=== PATIENT | female | born 2000 | race Caucasian/White ===

== ENCOUNTER 2019-03-28 18:46 | Emergency (ER) | payer SELFPAY ==
--- NOTE | 2019-03-28 18:50 | EDM.PDOC ---
ED HPI GENERAL MEDICAL PROBLEM - General Chief Complaint: Drug or Alcohol Abuse Stated Complaint: [facility] Time Seen by Provider: 03/28/19 18:50 - History of Present Illness INITIAL COMMENTS - FREE TEXT/NARRATIVE: 18-year-old female brought in by EMS after ingestion of a large amount of acetaminophen and unknown quantity of lithium. By history the patient took 50 325 mg Tylenol tablets around 10:00 this morning. Approximately hours after this she took anywhere from 2400 to 3600 g of lithium. She normally takes 450 mg in the morning 300 mg in the evening she says she took about 8 tablets and she is not sure of which strength that she took. She does states she was trying to kill herself she did not intend on living any longer. However, she did make the phone call to get help. The patient has not had any suicidal attempts in the past however she has been hospitalized for suicidal ideation. She denies drug or alcohol involvement. - Related Data Allergies Allergy/AdvReac Type Severity Reaction Status Date / Time Unable to Assess Allergy Unverified 03/28/19 20:06 Home Meds: Home Meds [place] Carbonate [[place] Carbonate ER] 450 mg PO BEDTIME 03/28/19 [History] Nadolol [Corgard] 20 mg PO DAILY 03/28/19 [History] busPIRone [Buspar] 15 mg PO BID 03/28/19 [History] ED ROS GENERAL - Review of Systems Review Of Systems: See Below Constitutional: Reports: No Symptoms HEENT: Reports: No Symptoms Respiratory: Reports: No Symptoms Cardiovascular: Reports: No Symptoms Endocrine: Reports: No Symptoms GI/Abdominal: Reports: No Symptoms Psychiatric: Reports: Suicidal Ideation ED EXAM, GENERAL - Physical Exam Exam: See Below Exam Limited By: No Limitations General Appearance: Alert, No Apparent Distress Head: Atraumatic, Normocephalic Neck: Normal Inspection, Supple, Non-Tender, Full Range of Motion. No: Lymphadenopathy (L), Lymphadenopathy (R) Respiratory/Chest: No Respiratory Distress, Lungs Clear, Normal Breath Sounds Cardiovascular: Regular Rate, Rhythm, No Edema, No Murmur GI/Abdominal: Normal Bowel Sounds, Soft, Non-Tender Back Exam: Normal Inspection. No: CVA Tenderness (L), CVA Tenderness (R) Extremities: No Pedal Edema Neurological: Alert Psychiatric: Depressed Mood Skin Exam: Warm, Dry, Intact Lymphatic: No Adenopathy EKG INTERPRETATION EKG Date: 03/28/19 Rhythm: NSR [place]: Normal P-Wave: Present QRS: Normal QT: Prolonged (Underlying) Comparison: NA - No Prior EKG EKG Interpretation Comments: She does have a history of prolonged QT syndrome Course - Vital Signs Last Recorded V/S: Last Vital Signs Temp 36.4 C 03/28/19 18:48 Pulse 115 H 03/28/19 18:48 Resp 20 03/28/19 18:48 BP 130/98 H 03/28/19 18:48 Pulse Ox 100 03/28/19 18:48 - Orders/Labs/Meds Orders: Active Orders 24 hr Category Date Time Status EKG Documentation Completion [RC] STAT Care 03/28/19 19:02 Active DRUG SCREEN, URINE [URCHEM] Stat Lab 03/28/19 19:03 Ordered URINALYSIS W/MICROSCOPIC [UA W/MICROSCOPIC] [URIN] Stat Lab 03/28/19 19:02 Ordered Acetylcysteine [Acetadote 20%] 17 ml Med 03/28/19 21:15 Active Dextrose 5% in Water 500 ml IV ONETIME Acetylcysteine [Acetadote 20%] 33.5 ml Med 03/29/19 01:15 Active Dextrose 5% in Water 1,000 ml IV ONETIME Acetylcysteine [Acetadote 20%] 50 ml Med 03/28/19 20:00 Active Dextrose 5% in Water 250 ml IV ONETIME Medication Orders Acetylcysteine/ Dextrose/Water 300 mls @ 300 mls/hr IV ONETIME ONE Stop: 03/28/19 20:59 Last Admin: 03/28/19 19:59 Dose: 300 mls/hr Acetylcysteine/ Dextrose/Water 517 mls @ 129.25 mls/hr IV ONETIME ONE Stop: 03/29/19 01:14 Acetylcysteine/ Dextrose/Water 1,033.5 mls @ 64.594 mls/hr IV ONETIME ONE Stop: 03/29/19 17:14 Labs: Laboratory Tests 03/28/19 03/28/19 03/28/19 Range/Units 18:50 18:50 18:50 WBC 7.56 (3.98-10.04) K/mm3 RBC 4.34 (3.98-5.22) M/mm3 Hgb 14.0 (11.2-15.7) gm/dl Hct 42.2 (34.1-44.9) % MCV 97.2 H (79.4-94.8) fl MCH 32.3 H (25.6-32.2) pg MCHC 33.2 (32.2-35.5) g/dl RDW Std Deviation 42.5 (36.4-46.3) fL Plt Count 309 (182-369) K/mm3 MPV 8.9 L (9.4-12.3) fl Neut % (Auto) 74.2 H (34.0-71.1) % Lymph % (Auto) 20.9 (19.3-51.7) % [place] % (Auto) 4.1 L (4.7-12.5) % Eos % (Auto) 0.1 L (0.7-5.8) Baso % (Auto) 0.3 (0.1-1.2) % Neut # (Auto) 5.61 (1.56-6.13) K/mm3 Lymph # (Auto) 1.58 (1.18-3.74) K/mm3 [place] # (Auto) 0.31 (0.24-0.36) K/mm3 Eos # (Auto) 0.01 L (0.04-0.36) K/mm3 Baso # (Auto) 0.02 (0.01-0.08) K/mm3 PT 10.9 (9.7-12.0) SECONDS INR 1.00 Puncture Site ABG pH (7.35-7.45) ABG pCO2 (35.0-45.0) mmHg ABG pO2 (80.0-100.0) mmHg ABG HCO3 (22.0-26.0) meq/L ABG O2 Saturation (96.0-97.0) % ABG Base Excess (-2-2.0) Bryan Test O2 Delivery Device FiO2 (21.00-100.00) % Sodium 139 (136-145) mEq/L Potassium 4.0 (3.5-5.1) mEq/L Chloride 105 (98-107) mEq/L Carbon Dioxide 21 (21-32) mEq/L Anion Gap 17.0 H (5-15) BUN 10 (7-18) mg/dL Creatinine 0.7 (0.55-1.02) mg/dL Est Cr Clr Drug Dosing 130.40 mL/min Estimated GFR (MDRD) > 60 (>60) mL/min BUN/Creatinine Ratio 14.3 (14-18) Glucose 123 H (74-106) mg/dL Calcium 9.2 (8.5-10.1) mg/dL Total Bilirubin 2.4 H (0.2-1.0) mg/dL AST 17 (15-37) U/L ALT 27 (14-59) U/L Alkaline Phosphatase 65 (46-116) U/L Total Protein 7.3 (6.4-8.2) g/dl Albumin 4.4 (3.4-5.0) g/dl Globulin 2.9 gm/dL Albumin/Globulin Ratio 1.5 (1-2) TSH 3rd Generation 0.403 L (0.516-4.13) uIU/mL HCG, Qual (NEGATIVE) Salicylates (2.8-20) mg/dL Acetaminophen 97 H (10-30) ug/mL Ethyl Alcohol 0.00 (0.00) gm% 03/28/19 03/28/19 03/28/19 Range/Units 18:50 18:50 19:03 WBC (3.98-10.04) K/mm3 RBC (3.98-5.22) M/mm3 Hgb (11.2-15.7) gm/dl Hct (34.1-44.9) % MCV (79.4-94.8) fl MCH (25.6-32.2) pg MCHC (32.2-35.5) g/dl RDW Std Deviation (36.4-46.3) fL Plt Count (182-369) K/mm3 MPV (9.4-12.3) fl Neut % (Auto) (34.0-71.1) % Lymph % (Auto) (19.3-51.7) % [place] % (Auto) (4.7-12.5) % Eos % (Auto) (0.7-5.8) Baso % (Auto) (0.1-1.2) % Neut # (Auto) (1.56-6.13) K/mm3 Lymph # (Auto) (1.18-3.74) K/mm3 [place] # (Auto) (0.24-0.36) K/mm3 Eos # (Auto) (0.04-0.36) K/mm3 Baso # (Auto) (0.01-0.08) K/mm3 PT (9.7-12.0) SECONDS INR Puncture Site Lt radial ABG pH 7.39 (7.35-7.45) ABG pCO2 35.8 (35.0-45.0) mmHg ABG pO2 92.0 (80.0-100.0) mmHg ABG HCO3 21.2 L (22.0-26.0) meq/L ABG O2 Saturation 97.3 H (96.0-97.0) % ABG Base Excess -2.7 L (-2-2.0) Bryan Test Positive O2 Delivery Device Room air FiO2 0.00 L (21.00-100.00) % Sodium (136-145) mEq/L Potassium (3.5-5.1) mEq/L Chloride (98-107) mEq/L Carbon Dioxide (21-32) mEq/L Anion Gap (5-15) BUN (7-18) mg/dL Creatinine (0.55-1.02) mg/dL Est Cr Clr Drug Dosing mL/min Estimated GFR (MDRD) (>60) mL/min BUN/Creatinine Ratio (14-18) Glucose (74-106) mg/dL Calcium (8.5-10.1) mg/dL Total Bilirubin (0.2-1.0) mg/dL AST (15-37) U/L ALT (14-59) U/L Alkaline Phosphatase (46-116) U/L Total Protein (6.4-8.2) g/dl Albumin (3.4-5.0) g/dl Globulin gm/dL Albumin/Globulin Ratio (1-2) TSH 3rd Generation (0.516-4.13) uIU/mL HCG, Qual Negative (NEGATIVE) Salicylates < 0.2 L (2.8-20) mg/dL Acetaminophen (10-30) ug/mL Ethyl Alcohol (0.00) gm% Meds: Medications Generic Name Dose Route Start Last Admin Trade Name Freq PRN Reason Stop Dose Admin Acetylcysteine/ Dextrose/Water 300 mls @ 300 mls/hr 03/28/19 20:00 03/28/19 19:59 IV 01/08/20 20:59 300 mls/hr ONETIME ONE Administration Acetylcysteine/ Dextrose/Water 517 mls @ 129.25 mls/hr 03/28/19 21:15 IV 03/29/19 01:14 ONETIME ONE Acetylcysteine/ Dextrose/Water 1,033.5 mls @ 64.594 mls/hr 03/29/19 01:15 IV 03/29/19 17:14 ONETIME ONE Discontinued Medications Generic Name Dose Route Start Last Admin Trade Name Romi PRN Reason Stop Dose Admin Acetylcysteine 9,975 mg 03/28/19 19:19 03/28/19 20:04 Acetadote 20% IV 03/28/19 19:20 Not Given ONETIME ONE - Re-Assessments/Exams Free Text/Narrative Re-Assessment/Exam: 03/28/19 19:47 Elpidio with poison control they agreed to go ahead and treat with Mucomyst may also recommend with the lithium and our inability to monitor the lithium levels that we transfer to a facility that can monitor the lithium. Case discussed with Dr. Wynn at the emergency room at [facility] who is happy to accept the patient Departure - Departure Time of Disposition: 19:49 Disposition: Admitted As Inpatient 65 Clinical Impression: Suicide attempt by lithium overdose, Overdose on Tylenol - Discharge Information Referrals: PCP,None [Primary Care Provider] - Sepsis Event Note - Evaluation Sepsis Screening Result: No Definite Risk - Focused Exam Vital Signs: Vital Signs Temp Pulse Resp BP Pulse Ox 03/28/19 18:48 36.4 C 115 H 20 130/98 H 100 Date Exam was Performed: 03/28/19 Time Exam was Performed: 20:17 - My Orders Last 24 Hours: My Active Orders 03/28/19 19:02 EKG Documentation Completion [RC] STAT URINALYSIS W/MICROSCOPIC [UA W/MICROSCOPIC] [URIN] Stat 03/28/19 19:03 DRUG SCREEN, URINE [URCHEM] Stat 03/28/19 20:00 Acetylcysteine [Acetadote 20%] 50 ml Dextrose 5% in Water 250 ml IV ONETIME 03/28/19 21:15 Acetylcysteine [Acetadote 20%] 17 ml Dextrose 5% in Water 500 ml IV ONETIME 03/29/19 01:15 Acetylcysteine [Acetadote 20%] 33.5 ml Dextrose 5% in Water 1,000 ml IV ONETIME - Assessment/Plan Last 24 Hours: My Active Orders 03/28/19 19:02 EKG Documentation Completion [RC] STAT URINALYSIS W/MICROSCOPIC [UA W/MICROSCOPIC] [URIN] Stat 03/28/19 19:03 DRUG SCREEN, URINE [URCHEM] Stat 03/28/19 20:00 Acetylcysteine [Acetadote 20%] 50 ml Dextrose 5% in Water 250 ml IV ONETIME 03/28/19 21:15 Acetylcysteine [Acetadote 20%] 17 ml Dextrose 5% in Water 500 ml IV ONETIME 03/29/19 01:15 Acetylcysteine [Acetadote 20%] 33.5 ml Dextrose 5% in Water 1,000 ml IV ONETIME
[2019-03-28] MEDS ORDERED: Acetylcysteine 20% 200 MG/ML 30 ML SDV IV ONE (19:19)
[2019-03-28 19:33] LABS: ACETAMINOPHEN 97 ug/mL (10-30)
[2019-03-28] MEDS ORDERED: ACETYLCYSTEINE IV ONE ×8 (20:00→21:15)
[2019-03-28] MEDS ORDERED: DEXTROSE IV ONE ×4 (20:00→21:15)
[2019-03-28] MEDS ORDERED: WATER IV ONE ×4 (20:00→21:15)
[2019-03-28] MEDS ORDERED: SODIUM CHLORIDE IV ONE ×4 (20:30→21:15)
[2019-03-28] MEDS ORDERED: Sodium Chloride 0.9% 1,000 ML IV SCH (20:45)
[2019-03-29] MEDS ORDERED: ACETYLCYSTEINE IV ONE ×2 (01:15)
[2019-03-29] MEDS ORDERED: WATER IV ONE ×2 (01:15)
[2019-03-29] MEDS ORDERED: DEXTROSE IV ONE ×2 (01:15)
== END 2019-03-28 21:00 ==
LOC: JD.ED 18:46
DX: T56.892A Toxic effect of other metals, intentional self-harm, initial encounter (principal); T39.1X2A Poisoning by 4-Aminophenol derivatives, intentional self-harm, initial encounter
CPT/HCPCS: 36415; 36600; 80053; 80306; 80320; 80329; 81001; 82803; 84443; 84703; 85025; 85610; 93005; 96374; 99285; J0132; J7030; J7040; J7060; 93010; 99284; G0480

== ENCOUNTER 2019-04-20 21:01 | Emergency (ER) | payer SELFPAY ==
[2019-04-20] MEDS ORDERED: Ondansetron 4 MG/2 ML SDV IVPUSH ONE (22:00)
[2019-04-20] MEDS ORDERED: Lactated Ringers 1,000 ML IV SCH (22:00)
--- NOTE | 2019-04-20 22:10 | EDM.PDOCBH ---
ED HPI GENERAL MEDICAL PROBLEM - General Chief Complaint: Behavioral/Psych Stated Complaint: SUICIDAL Time Seen by Provider: 04/20/19 21:40 Source of Information: Reports: Patient, EMS - History of Present Illness INITIAL COMMENTS - FREE TEXT/NARRATIVE: 18-year-old female presents the emergency room brought in by EMS with suicidal ideation. The patient was feeling pretty down and had a bunch of alcohol she cannot recall how much to drink and then she was getting take a bunch of her prescription medications she is on lithium 4 and 50 mg at bedtime nadolol 20 mg daily and Effexor XR 750 mg daily. At this point she is acutely intoxicated but tries to cooperate. She just says she is really been down. She denies taking medication at this point. I saw the patient several weeks ago where she did take Tylenol and lithium and she had to be transferred out as we do not have the ability to monitor her lithium. She did require Mucomyst therapy before heading to [place]. She has a significant past medical history of prolonged QT syndrome. - Related Data Allergies Allergy/AdvReac Type Severity Reaction Status Date / Time Sulfa (Sulfonamide Allergy Hives Verified 04/20/19 21:09 Antibiotics) Home Meds: Home Meds [place] Carbonate [[place] Carbonate ER] 450 mg PO BEDTIME 03/28/19 [History] Nadolol [Corgard] 20 mg PO DAILY 03/28/19 [History] Venlafaxine [Effexor XR] 750 mg PO DAILY 04/20/19 [History] Past Medical History Cardiovascular History: Reports: Other (See Below) Other Cardiovascular History: Pt states she has been diagnosed with prolonged QT syndrome Respiratory History: Reports: Asthma Psychiatric History: Reports: Alzheimers Disease, Anxiety, Depression, Suicide Attempt, Suicidal Ideation Social & Family History - Family History Family Medical History: Noncontributory - Tobacco Use Smoking Status *Q: Never Smoker Second Hand Smoke Exposure: No - Caffeine Use Caffeine Use: Reports: None - Recreational Drug Use Recreational Drug Use: No ED ROS GENERAL - Review of Systems Review Of Systems: See Below Constitutional: Reports: No Symptoms HEENT: Reports: No Symptoms Respiratory: Reports: No Symptoms Cardiovascular: Reports: No Symptoms Endocrine: Reports: No Symptoms GI/Abdominal: Reports: No Symptoms : Reports: No Symptoms ED EXAM, BEHAVIORAL HEALTH - Physical Exam Exam: See Below Exam Limited By: No Limitations General Appearance: Alert, Other (She is intoxicated with slurred speech) Eye Exam: Bilateral Eye: Normal Inspection Ears: Normal External Exam, Normal Canal, Hearing Grossly Normal, Normal TMs Nose: Normal Inspection, Normal Mucosa, No Blood Throat/Mouth: Normal Inspection, Normal Lips, Normal Teeth, Normal Gums, Normal Oropharynx, Normal Voice, No Airway Compromise Head: Atraumatic, Normocephalic Neck: Normal Inspection, Supple, Non-Tender, Full Range of Motion Respiratory/Chest: No Respiratory Distress, Lungs Clear, Normal Breath Sounds, No Accessory Muscle Use, Chest Non-Tender Cardiovascular: Normal Peripheral Pulses, Regular Rate, Rhythm, No Edema, No Gallop, No JVD, No Murmur, No Rub GI/Abdominal: Normal Bowel Sounds, Soft, Non-Tender, No Organomegaly, No Distention, No Abnormal Bruit, No Mass (Female) Exam: Normal External Exam, Normal Speculum Exam, Normal Bimanual Exam Rectal (Female) Exam: Normal Exam, Normal Rectal Tone Back Exam: Normal Inspection, Full Range of Motion. No: CVA Tenderness (L), CVA Tenderness (R) Extremities: Normal Inspection, Normal Range of Motion, Non-Tender Neurological: Alert, Normal Mood/Affect, CN II-XII Intact Psychiatric: Suicidal Plan, Suicidal Thoughts Skin Exam: Warm, Dry, Intact COURSE, BEHAVIORAL HEALTH COMP - Course Vital Signs: Last Vital Signs Temp 36.8 C 04/20/19 21:10 Pulse 113 H 04/20/19 21:10 Resp 16 04/20/19 21:10 BP 150/108 H 04/20/19 21:10 Pulse Ox 99 04/20/19 21:10 Orders, Labs, Meds: Active Orders 24 hr Category Date Time Status EKG Documentation Completion [RC] STAT Care 04/20/19 21:58 Active LITHIUM [REF] Stat Lab 04/20/19 22:25 Received Lactated Ringers [Ringers, Lactated] 1,000 ml Med 04/20/19 22:00 Active IV ASDIRECTED Medication Orders Lactated Ringer's (Ringers, Lactated) 1,000 mls @ 150 mls/hr IV ASDIRECTED BONG Last Admin: 04/20/19 22:26 Dose: 150 mls/hr Laboratory Tests 01/31/20 01/31/20 01/31/20 Range/Units 22:13 22:13 22:25 WBC 10.25 H (3.98-10.04) K/mm3 RBC 4.31 (3.98-5.22) M/mm3 Hgb 13.8 (11.2-15.7) gm/dl Hct 41.5 (34.1-44.9) % MCV 96.3 H (79.4-94.8) fl MCH 32.0 (25.6-32.2) pg MCHC 33.3 (32.2-35.5) g/dl RDW Std Deviation 40.4 (36.4-46.3) fL Plt Count 365 (182-369) K/mm3 MPV 9.2 L (9.4-12.3) fl Neut % (Auto) 75.4 H (34.0-71.1) % Lymph % (Auto) 15.0 L (19.3-51.7) % [place] % (Auto) 5.3 (4.7-12.5) % Eos % (Auto) 3.7 (0.7-5.8) Baso % (Auto) 0.5 (0.1-1.2) % Neut # (Auto) 7.73 H (1.56-6.13) K/mm3 Lymph # (Auto) 1.54 (1.18-3.74) K/mm3 [place] # (Auto) 0.54 H (0.24-0.36) K/mm3 Eos # (Auto) 0.38 H (0.04-0.36) K/mm3 Baso # (Auto) 0.05 (0.01-0.08) K/mm3 Manual Slide Review Normal smear PT (9.7-12.0) SECONDS INR Sodium (136-145) mEq/L Potassium (3.5-5.1) mEq/L Chloride (98-107) mEq/L Carbon Dioxide (21-32) mEq/L Anion Gap (5-15) BUN (7-18) mg/dL Creatinine (0.55-1.02) mg/dL Est Cr Clr Drug Dosing mL/min Estimated GFR (MDRD) (>60) mL/min BUN/Creatinine Ratio (14-18) Glucose (74-106) mg/dL Calcium (8.5-10.1) mg/dL Magnesium (1.8-2.4) mg/dl Total Bilirubin (0.2-1.0) mg/dL AST (15-37) U/L ALT (14-59) U/L Alkaline Phosphatase (46-116) U/L Total Protein (6.4-8.2) g/dl Albumin (3.4-5.0) g/dl Globulin gm/dL Albumin/Globulin Ratio (1-2) TSH 3rd Generation (0.516-4.13) uIU/mL Urine HCG, Qual Negative (NEGATIVE) Salicylates (2.8-20) mg/dL Urine Opiates Screen Negative (NBRKAX=179) Ur Buprenorphine Scrn Negative (CUTOFF=10) Ur Oxycodone Screen Negative (YGW2TW=202) Urine Methadone Screen Negative (LEWPCT=765) Ur Propoxyphene Screen Negative (WJLTBP=594) Acetaminophen (10-30) ug/mL Ur Barbiturates Screen Negative (DRAQNJ=916) Ur Tricyclics Screen Negative (CFKYSA=789) Ur Phencyclidine Scrn Negative (CUTOFF=25) Ur Amphetamine Screen Negative (ZDYVSE=000) U Methamphetamines Scrn Negative (WHLZTR=185) U Benzodiazepines Scrn Negative (QIQQNL=450) U Cocaine Metab Screen Negative (JBETPJ=963) U Marijuana (THC) Screen Negative (CUTOFF=50) Ethyl Alcohol (0.00) gm% 04/20/19 04/20/19 04/20/19 Range/Units 22:25 22:25 22:25 WBC (3.98-10.04) K/mm3 RBC (3.98-5.22) M/mm3 Hgb (11.2-15.7) gm/dl Hct (34.1-44.9) % MCV (79.4-94.8) fl MCH (25.6-32.2) pg MCHC (32.2-35.5) g/dl RDW Std Deviation (36.4-46.3) fL Plt Count (182-369) K/mm3 MPV (9.4-12.3) fl Neut % (Auto) (34.0-71.1) % Lymph % (Auto) (19.3-51.7) % [place] % (Auto) (4.7-12.5) % Eos % (Auto) (0.7-5.8) Baso % (Auto) (0.1-1.2) % Neut # (Auto) (1.56-6.13) K/mm3 Lymph # (Auto) (1.18-3.74) K/mm3 [place] # (Auto) (0.24-0.36) K/mm3 Eos # (Auto) (0.04-0.36) K/mm3 Baso # (Auto) (0.01-0.08) K/mm3 Manual Slide Review PT 10.1 (9.7-12.0) SECONDS INR 0.93 Sodium 139 (136-145) mEq/L Potassium 3.5 (3.5-5.1) mEq/L Chloride 105 (98-107) mEq/L Carbon Dioxide 20 L (21-32) mEq/L Anion Gap 17.5 H (5-15) BUN 12 (7-18) mg/dL Creatinine 0.7 (0.55-1.02) mg/dL Est Cr Clr Drug Dosing 130.40 mL/min Estimated GFR (MDRD) > 60 (>60) mL/min BUN/Creatinine Ratio 17.1 (14-18) Glucose 123 H (74-106) mg/dL Calcium 9.0 (8.5-10.1) mg/dL Magnesium (1.8-2.4) mg/dl Total Bilirubin 1.0 (0.2-1.0) mg/dL AST 12 L (15-37) U/L ALT 22 (14-59) U/L Alkaline Phosphatase 79 (46-116) U/L Total Protein 7.7 (6.4-8.2) g/dl Albumin 4.3 (3.4-5.0) g/dl Globulin 3.4 gm/dL Albumin/Globulin Ratio 1.3 (1-2) TSH 3rd Generation 0.710 (0.516-4.13) uIU/mL Urine HCG, Qual (NEGATIVE) Salicylates < 0.2 L (2.8-20) mg/dL Urine Opiates Screen (MQPNGW=112) Ur Buprenorphine Scrn (CUTOFF=10) Ur Oxycodone Screen (ITQ7XE=055) Urine Methadone Screen (DSBVDP=613) Ur Propoxyphene Screen (VROGUG=727) Acetaminophen 0 L (10-30) ug/mL Ur Barbiturates Screen (LSGYWA=779) Ur Tricyclics Screen (YDSSFC=015) Ur Phencyclidine Scrn (CUTOFF=25) Ur Amphetamine Screen (SXQGVY=052) U Methamphetamines Scrn (KSYYHZ=855) U Benzodiazepines Scrn (IYTXAZ=025) U Cocaine Metab Screen (NGRUWD=815) U Marijuana (THC) Screen (CUTOFF=50) Ethyl Alcohol 0.05 (0.00) gm% 04/20/19 Range/Units 22:25 WBC (3.98-10.04) K/mm3 RBC (3.98-5.22) M/mm3 Hgb (11.2-15.7) gm/dl Hct (34.1-44.9) % MCV (79.4-94.8) fl MCH (25.6-32.2) pg MCHC (32.2-35.5) g/dl RDW Std Deviation (36.4-46.3) fL Plt Count (182-369) K/mm3 MPV (9.4-12.3) fl Neut % (Auto) (34.0-71.1) % Lymph % (Auto) (19.3-51.7) % Lucas % (Auto) (4.7-12.5) % Eos % (Auto) (0.7-5.8) Baso % (Auto) (0.1-1.2) % Neut # (Auto) (1.56-6.13) K/mm3 Lymph # (Auto) (1.18-3.74) K/mm3 Lucas # (Auto) (0.24-0.36) K/mm3 Eos # (Auto) (0.04-0.36) K/mm3 Baso # (Auto) (0.01-0.08) K/mm3 Manual Slide Review PT (9.7-12.0) SECONDS INR Sodium (136-145) mEq/L Potassium (3.5-5.1) mEq/L Chloride (98-107) mEq/L Carbon Dioxide (21-32) mEq/L Anion Gap (5-15) BUN (7-18) mg/dL Creatinine (0.55-1.02) mg/dL Est Cr Clr Drug Dosing mL/min Estimated GFR (MDRD) (>60) mL/min BUN/Creatinine Ratio (14-18) Glucose (74-106) mg/dL Calcium (8.5-10.1) mg/dL Magnesium 2.2 (1.8-2.4) mg/dl Total Bilirubin (0.2-1.0) mg/dL AST (15-37) U/L ALT (14-59) U/L Alkaline Phosphatase (46-116) U/L Total Protein (6.4-8.2) g/dl Albumin (3.4-5.0) g/dl Globulin gm/dL Albumin/Globulin Ratio (1-2) TSH 3rd Generation (0.516-4.13) uIU/mL Urine HCG, Qual (NEGATIVE) Salicylates (2.8-20) mg/dL Urine Opiates Screen (HRRGGY=200) Ur Buprenorphine Scrn (CUTOFF=10) Ur Oxycodone Screen (FMN1IT=414) Urine Methadone Screen (IINWDH=472) Ur Propoxyphene Screen (TYYVIE=589) Acetaminophen (10-30) ug/mL Ur Barbiturates Screen (CHVGZG=678) Ur Tricyclics Screen (ZSIHSG=785) Ur Phencyclidine Scrn (CUTOFF=25) Ur Amphetamine Screen (VXALGY=511) U Methamphetamines Scrn (AAFSJF=950) U Benzodiazepines Scrn (LSYLXJ=450) U Cocaine Metab Screen (FUMHBA=879) U Marijuana (THC) Screen (CUTOFF=50) Ethyl Alcohol (0.00) gm% Medications Generic Name Dose Route Start Last Admin Trade Name Freq PRN Reason Stop Dose Admin Lactated Ringer's 1,000 mls @ 150 mls/hr 04/20/19 22:00 04/20/19 22:26 Ringers, Lactated IV 150 mls/hr ASDIRECTED BONG Administration Discontinued Medications Generic Name Dose Route Start Last Admin Trade Name Freq PRN Reason Stop Dose Admin Haloperidol Lactate 5 mg 04/21/19 03:20 04/21/19 03:49 Haldol IM 04/21/19 03:21 5 mg ONETIME ONE Administration Haloperidol Lactate Confirm 04/21/19 03:18 04/21/19 03:50 Haldol Administered 04/21/19 03:19 Not Given Dose 5 mg .ROUTE .STK-MED ONE Lorazepam 1 mg 04/21/19 03:05 04/21/19 03:50 Ativan IM 04/21/19 03:06 1 mg ONETIME ONE Administration Ondansetron HCl 4 mg 04/20/19 22:00 04/20/19 22:27 Zofran IVPUSH 04/20/19 22:01 4 mg ONETIME ONE Administration Discharge vs Psych Eval/Treatment:: 04/20/19 22:18 This case was discussed with poison control they recommend transferring to a higher level of care so her lithium can be evaluated for now IV fluids and stabilize as needed opiate labs ordered however we cannot check for a lithium here 04/21/19 00:28 It took a while with the department being busy and several phone calls where we could not get connected to the right [facility] at [facility]. But ultimately discussed the situation with Dr. Tran in the emergency room at [facility] who kindly accepts the patient Case discussed with him. 04/21/19 01:15 At this time transfer is not available and we are just going to have to sit on the patient the patient will be sober by the time we can get transfer anticipate transfer to psych at that point and they can check a lithium. She is probably still have to go through the emergency room. 04/21/19 03:08 Short time ago I went in to check on the patient and explained to her why she has not been transferred yet she seemed to be okay with this. Shortly after that the patient eloped from the department however the police department did find her and bring her back. At this time she is acting quite agitated and does not want answer any questions she is tearful and when I approach her she withdrawals. We will give her a milligram of IM Ativan and more if needed to try and calm her down. 04/21/19 07:23 She is doing well returning to arrange transfer to [facility] in [place] Dr. 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 Departure - Departure Time of Disposition: 00:29 Disposition: DC/Tfer to Acute Hospital 02 Clinical Impression: Suicidal ideation, Suicide attempt by lithium overdose - Discharge Information Referrals: PCP,None [Primary Care Provider] - Forms: ED Department Discharge Sepsis Event Note - Evaluation Sepsis Screening Result: No Definite Risk - Focused Exam Vital Signs: Vital Signs Temp Pulse Resp BP Pulse Ox 04/20/19 21:10 36.8 C 113 H 16 150/108 H 99 Date Exam was Performed: 04/21/19 Time Exam was Performed: 07:33 - My Orders Last 24 Hours: My Active Orders 04/20/19 21:58 EKG Documentation Completion [RC] STAT 04/20/19 22:00 Lactated Ringers [Ringers, Lactated] 1,000 ml IV ASDIRECTED 04/20/19 22:25 LITHIUM [REF] Stat - Assessment/Plan Last 24 Hours: My Active Orders 04/20/19 21:58 EKG Documentation Completion [RC] STAT 04/20/19 22:00 Lactated Ringers [Ringers, Lactated] 1,000 ml IV ASDIRECTED 04/20/19 22:25 LITHIUM [REF] Stat
[2019-04-20 23:28] LABS: ACETAMINOPHEN 0 ug/mL (10-30)
[2019-04-21] MEDS ORDERED: LORazepam 2 MG/ML SDV IM ONE (03:05)
[2019-04-21] MEDS ORDERED: Haloperidol Lactate 5 MG/ML SDV ONE (03:18)
[2019-04-21] MEDS ORDERED: Haloperidol Lactate 5 MG/ML SDV IM ONE (03:20)
== END 2019-04-21 11:40 ==
LOC: JD.ED 21:01
DX: T56.892A Toxic effect of other metals, intentional self-harm, initial encounter (principal); J45.909 Unspecified asthma, uncomplicated; G30.9 Alzheimer's disease, unspecified; F02.80 Dementia in other diseases classified elsewhere, unspecified severity, without behavioral disturbance, psychotic disturbance, mood disturbance, and anxiety; F32.9 Major depressive disorder, single episode, unspecified; F41.9 Anxiety disorder, unspecified; Z88.2 Allergy status to sulfonamides
CPT/HCPCS: 36415; 80053; 80178; 80306; 80320; 80329; 81025; 83735; 84443; 85025; 85610; 93005; 96361; 96372; 96374; 99285; J1630; J2060; J2405; J7120; 93010; 99283; G0480

== ENCOUNTER 2019-04-24 21:27 | Emergency (ER) | payer OTHER, SELFPAY ==
--- NOTE | 2019-04-24 22:24 | EDM.PDOCBH ---
ED HPI GENERAL MEDICAL PROBLEM - General Chief Complaint: Behavioral/Psych Stated Complaint: [facility] Time Seen by Provider: 04/24/19 21:52 Source of Information: Reports: Patient History Limitations: Reports: No Limitations - History of Present Illness INITIAL COMMENTS - FREE TEXT/NARRATIVE: Ms. Borges is a pleasant 18-year-old woman with a past medical history significant for congenital long QT syndrome, for which she takes nadolol, suspected asthma as a child, PTSD, depression, a mood disorder, and one prior suicide attempt on 03/28/2019, when she took an overdose of Tylenol and lithium. She was transferred to [facility] in [place]. She was subsequently seen on after becoming intoxicated, but not otherwise attempting to harm herself. She was transferred to [facility], and was released yesterday, 04/23/2019. The patient has also been psychiatrically hospitalized for suicidal ideation without suicide attempt. The patient states that when she was discharged yesterday, changes to her medications were made. She is currently on venlafaxine and lithium. She states that she is also on a medication to treat her paranoia (which is what she refers to her PTSD as), however, she does not recall the name of that medication. The patient now presents to the ED after scratching the volar aspect of left wrist 4 times around 20:00, then calling a suicide hotline, who in turn called EMS. The patient was at home with her sister, who apparently did not know anything about the patient's actions. When I asked the patient why she did that to herself, she responded that she had gotten paranoid about people hurting her , and felt self-destructive. She stated that she had considered stabbing herself in order to commit suicide. She stated a "I'm a piece of shit". The patient denies attempting to harm herself in any other way, and denies any ingestion of alcohol, drugs, or medications. The patient does not have a PCP. Her Psychiatrist is Dr. Jacquelin Waller. She last saw Dr. Waller about 2 weeks ago, but does not recall when her next appointment is. Her therapist is Giovana at [facility]. - Related Data Allergies Allergy/AdvReac Type Severity Reaction Status Date / Time Sulfa (Sulfonamide Allergy Hives Verified 04/20/19 21:09 Antibiotics) Home Meds: Home Meds Keo Carbonate [Keo Carbonate ER] 450 mg PO BEDTIME 03/28/19 [History] Nadolol [Corgard] 20 mg PO DAILY 03/28/19 [History] Venlafaxine [Effexor XR] 750 mg PO DAILY 04/20/19 [History] Melatonin 1 mg PO BEDTIME 04/24/19 [History] Past Medical History Cardiovascular History: Reports: Other (See Below) (Congenital long QT syndrome) Respiratory History: Reports: Asthma (suspected, as a child) Psychiatric History: Reports: Depression, PTSD, Suicide Attempt, Other (See Below) (Mood disorder) Social & Family History - Family History Family Medical History: Noncontributory - Tobacco Use Smoking Status *Q: Never Smoker - Caffeine Use Caffeine Use: Reports: None - Alcohol Use Alcohol Use History: Yes Alcohol Use Frequency: Socially (has only imbibed twice) - Recreational Drug Use Recreational Drug Use: No - Living Situation & Occupation Living situation: Reports: Single, with Family (Sister) Occupation: Unemployed ED ROS GENERAL - Review of Systems Review Of Systems: Comprehensive ROS is negative, except as noted in HPI. ED EXAM, BEHAVIORAL HEALTH - Physical Exam Exam: See Below Exam Limited By: No Limitations General Appearance: Alert, WD/WN, No Apparent Distress Eye Exam: Bilateral Eye: EOMI, Normal Inspection Ears: Normal External Exam, Hearing Grossly Normal Nose: Normal Inspection Throat/Mouth: Normal Inspection, Normal Lips, Normal Voice, No Airway Compromise Head: Atraumatic, Normocephalic Neck: Normal Inspection, Full Range of Motion Respiratory/Chest: No Respiratory Distress, Lungs Clear, Normal Breath Sounds, No Accessory Muscle Use Cardiovascular: Normal Peripheral Pulses, Regular Rate, Rhythm, No Edema, No Gallop, No JVD, No Murmur, No Rub GI/Abdominal: Normal Bowel Sounds, Soft, Non-Tender, No Organomegaly, No Distention, No Abnormal Bruit, No Mass (Female) Exam: Deferred Rectal (Female) Exam: Deferred Back Exam: Normal Inspection, Full Range of Motion, NT Extremities: Normal Range of Motion, No Pedal Edema, Normal Capillary Refill, Other (4 superficial scratches to the volar aspect of the patient's left wrist, each about 2 cm in length, none requiring medical treatment) Neurological: Alert, Normal Cognition, No Motor/Sensory Deficits, Oriented x 3 Psychiatric: Depressed Mood Skin Exam: Warm, Dry, Intact, Normal color, No rash EKG INTERPRETATION EKG Date: 04/24/19 Time: 22:25 Rhythm: NSR Rate (Beats/Min): 81 [place]: Normal P-Wave: Present (Borderline 1 AVB) QRS: Normal ST-T: Normal QT: Prolonged (QTc 519 ms) Comparison: No Change (04/20/2019) COURSE, BEHAVIORAL HEALTH COMP - Course Vital Signs: Last Vital Signs Temp 36.9 C 04/24/19 21:28 Pulse 74 04/24/19 21:28 Resp 14 04/24/19 21:28 BP 136/105 H 04/24/19 21:28 Pulse Ox 99 04/24/19 21:28 Orders, Labs, Meds: Active Orders 24 hr Category Date Time Status EKG Documentation Completion [RC] STAT Care 04/24/19 22:10 Active Laboratory Tests 04/24/19 04/24/19 04/24/19 Range/Units 22:30 22:30 22:30 WBC 8.89 (3.98-10.04) K/mm3 RBC 4.19 (3.98-5.22) M/mm3 Hgb 13.7 (11.2-15.7) gm/dl Hct 40.7 (34.1-44.9) % MCV 97.1 H (79.4-94.8) fl MCH 32.7 H (25.6-32.2) pg MCHC 33.7 (32.2-35.5) g/dl RDW Std Deviation 40.8 (36.4-46.3) fL Plt Count 332 (182-369) K/mm3 MPV 9.1 L (9.4-12.3) fl Neut % (Auto) 70.7 (34.0-71.1) % Lymph % (Auto) 19.8 (19.3-51.7) % [place] % (Auto) 6.3 (4.7-12.5) % Eos % (Auto) 2.5 (0.7-5.8) Baso % (Auto) 0.6 (0.1-1.2) % Neut # (Auto) 6.29 H (1.56-6.13) K/mm3 Lymph # (Auto) 1.76 (1.18-3.74) K/mm3 [place] # (Auto) 0.56 H (0.24-0.36) K/mm3 Eos # (Auto) 0.22 (0.04-0.36) K/mm3 Baso # (Auto) 0.05 (0.01-0.08) K/mm3 Sodium 138 (136-145) mEq/L Potassium 4.3 (3.5-5.1) mEq/L Chloride 102 (98-107) mEq/L Carbon Dioxide 27 (21-32) mEq/L Anion Gap 13.3 (5-15) BUN 10 (7-18) mg/dL Creatinine 0.7 (0.55-1.02) mg/dL Est Cr Clr Drug Dosing 129.59 mL/min Estimated GFR (MDRD) > 60 (>60) mL/min BUN/Creatinine Ratio 14.3 (14-18) Glucose 117 H (74-106) mg/dL Calcium 9.6 (8.5-10.1) mg/dL Total Bilirubin 1.0 (0.2-1.0) mg/dL AST 12 L (15-37) U/L ALT 22 (14-59) U/L Alkaline Phosphatase 73 (46-116) U/L Total Protein 7.7 (6.4-8.2) g/dl Albumin 4.5 (3.4-5.0) g/dl Globulin 3.2 gm/dL Albumin/Globulin Ratio 1.4 (1-2) TSH 3rd Generation 1.245 (0.516-4.13) uIU/mL Urine HCG, Qual (NEGATIVE) Salicylates < 0.2 L (2.8-20) mg/dL Urine Opiates Screen (QOKLYY=702) Ur Buprenorphine Scrn (CUTOFF=10) Ur Oxycodone Screen (FJX5GW=915) Urine Methadone Screen (UVLFYU=565) Ur Propoxyphene Screen (WZZIOM=889) Acetaminophen 0 L (10-30) ug/mL Ur Barbiturates Screen (XUOTQR=488) Ur Tricyclics Screen (RSKELG=557) Ur Phencyclidine Scrn (CUTOFF=25) Ur Amphetamine Screen (RVEWMP=820) U Methamphetamines Scrn (PXYTAV=413) U Benzodiazepines Scrn (OVTIOB=997) U Cocaine Metab Screen (EDNIDN=236) U Marijuana (THC) Screen (CUTOFF=50) Ethyl Alcohol 0.00 (0.00) gm% 04/24/19 04/24/19 Range/Units 22:52 22:52 WBC (3.98-10.04) K/mm3 RBC (3.98-5.22) M/mm3 Hgb (11.2-15.7) gm/dl Hct (34.1-44.9) % MCV (79.4-94.8) fl MCH (25.6-32.2) pg MCHC (32.2-35.5) g/dl RDW Std Deviation (36.4-46.3) fL Plt Count (182-369) K/mm3 MPV (9.4-12.3) fl Neut % (Auto) (34.0-71.1) % Lymph % (Auto) (19.3-51.7) % [place] % (Auto) (4.7-12.5) % Eos % (Auto) (0.7-5.8) Baso % (Auto) (0.1-1.2) % Neut # (Auto) (1.56-6.13) K/mm3 Lymph # (Auto) (1.18-3.74) K/mm3 [place] # (Auto) (0.24-0.36) K/mm3 Eos # (Auto) (0.04-0.36) K/mm3 Baso # (Auto) (0.01-0.08) K/mm3 Sodium (136-145) mEq/L Potassium (3.5-5.1) mEq/L Chloride (98-107) mEq/L Carbon Dioxide (21-32) mEq/L Anion Gap (5-15) BUN (7-18) mg/dL Creatinine (0.55-1.02) mg/dL Est Cr Clr Drug Dosing mL/min Estimated GFR (MDRD) (>60) mL/min BUN/Creatinine Ratio (14-18) Glucose (74-106) mg/dL Calcium (8.5-10.1) mg/dL Total Bilirubin (0.2-1.0) mg/dL AST (15-37) U/L ALT (14-59) U/L Alkaline Phosphatase (46-116) U/L Total Protein (6.4-8.2) g/dl Albumin (3.4-5.0) g/dl Globulin gm/dL Albumin/Globulin Ratio (1-2) TSH 3rd Generation (0.516-4.13) uIU/mL Urine HCG, Qual Negative (NEGATIVE) Salicylates (2.8-20) mg/dL Urine Opiates Screen Negative (DPPKIS=605) Ur Buprenorphine Scrn Negative (CUTOFF=10) Ur Oxycodone Screen Negative (ULO4LQ=083) Urine Methadone Screen Negative (TBAHXC=289) Ur Propoxyphene Screen Negative (XLZBRB=519) Acetaminophen (10-30) ug/mL Ur Barbiturates Screen Negative (JJJNEE=172) Ur Tricyclics Screen Negative (MLFXFC=323) Ur Phencyclidine Scrn Negative (CUTOFF=25) Ur Amphetamine Screen Negative (AEECLR=810) U Methamphetamines Scrn Negative (AMHPAS=742) U Benzodiazepines Scrn Negative (INKYWU=665) U Cocaine Metab Screen Negative (HDVUKP=233) U Marijuana (THC) Screen Negative (CUTOFF=50) Ethyl Alcohol (0.00) gm% Medical Clearance: 04/24/19 22:12 While not a genuine threat to her life, the patient is feeling suicidal, and would likely benefit from psychiatric hospitalization. I have therefore ordered a standard psychiatric medical clearance panel, that the patient indicated she would cooperate with. 04/24/19 23:39 The patient's CBC is unremarkable. Her CMP is remarkable for a blood glucose slightly elevated at 117, and is otherwise unremarkable. Her TSH is within normal limits at 1.245. Her acetaminophen level is 0. Her salicylate level is <0.2. Her EtOH level is 0. Her urine drug screen is completely negative. Her urine test is negative. We will endeavor to find a psychiatric bed for the patient. 04/25/19 00:42 Notified by Malena WIGGINS that no psychiatric beds are available in [place]. A bed is available in [place], however, they require a committal, which would need to be signed by the fisher mussel, as well as an evaluation by Kristy , which would not be until the morning. We will therefore keep the patient here in the ED overnight. 04/25/19 04:31 Case discussed with Pretty at [facility] at 04:24. She would like us to fax a face sheet, my notes, and the lab results. 04/25/19 05:07 Notified by Ria WIGGINS that the patient has been accepted at [facility]. They require a 24-hour hold, therefore the patient will need to be transported by the [facility] department. Departure - Departure Time of Disposition: 05:07 Disposition: DC/Tfer to Psych Hosp/Unit 65 Condition: Good Clinical Impression: Suicide gesture, Suicidal ideation, Prolonged Q-T interval on ECG - Discharge Information *PRESCRIPTION DRUG MONITORING PROGRAM REVIEWED*: Not Applicable *COPY OF PRESCRIPTION DRUG MONITORING REPORT IN PATIENT JACKIE: Not Applicable Referrals: PCP,None [Primary Care Provider] - Free,Jacquelin Miller MD [Ordering Only Provider] - Forms: ED Department Discharge Sepsis Event Note - Evaluation Sepsis Screening Result: No Definite Risk - Focused Exam Vital Signs: Vital Signs Temp Pulse Resp BP Pulse Ox 04/24/19 21:28 36.9 C 74 14 136/105 H 99 Date Exam was Performed: 04/25/19 Time Exam was Performed: 05:07 - My Orders Last 24 Hours: My Active Orders 04/24/19 22:10 EKG Documentation Completion [RC] STAT - Assessment/Plan Last 24 Hours: My Active Orders 04/24/19 22:10 EKG Documentation Completion [RC] STAT
[2019-04-24 23:14] LABS: ACETAMINOPHEN 0 ug/mL (10-30)
== END 2019-04-25 18:39 ==
LOC: JD.ED 21:27
DX: S60.812A Abrasion of left wrist, initial encounter (principal); R94.31 Abnormal electrocardiogram [ECG] [EKG]; F32.9 Major depressive disorder, single episode, unspecified; Z88.2 Allergy status to sulfonamides; Z79.899 Other long term (current) drug therapy; X83.8XXA Intentional self-harm by other specified means, initial encounter; Y92.009 Unspecified place in unspecified non-institutional (private) residence as the place of occurrence of the external cause
CPT/HCPCS: 36415; 80053; 80306; 81025; 84443; 85025; 93005; 93010; 99285; 99285-25; G0480

== ENCOUNTER 2019-07-20 21:45 | Emergency (ER) | payer MEDICAID ==
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
[2019-07-20 22:42] LABS: ACETAMINOPHEN 0 ug/mL (10-30)
[2019-07-21] MEDS ORDERED: LORazepam 2 MG/ML SDV IM ONE (04:33)
== END 2019-07-21 07:08 ==
LOC: JD.ED 21:45
DX: R45.851 Suicidal ideations (principal); F16.10 Hallucinogen abuse, uncomplicated; I45.81 Long QT syndrome; J45.909 Unspecified asthma, uncomplicated; F32.9 Major depressive disorder, single episode, unspecified; F43.10 Post-traumatic stress disorder, unspecified; Z88.2 Allergy status to sulfonamides; Z79.899 Other long term (current) drug therapy
CPT/HCPCS: 36415; 80053; 80306; 80307; 81001; 81025; 85007; 85027; 85610; 87086; 93005; 96372; 99285; J2060; 93010; 99283

== ENCOUNTER 2019-07-28 19:06 | Emergency (ER) | payer MEDICAID ==
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
[2019-07-28 20:53] LABS: ACETAMINOPHEN 0 ug/mL (10-30)
== END 2019-07-28 22:41 | disposition home or self-care (01) ==
LOC: JD.ED 19:06
DX: F32.89 Other specified depressive episodes (principal); F41.9 Anxiety disorder, unspecified; Z88.2 Allergy status to sulfonamides; Z79.899 Other long term (current) drug therapy
CPT/HCPCS: 36415; 80053; 80306; 80307; 81001; 84703; 85025; 99283; 99285

== ENCOUNTER 2019-08-08 10:59 | Emergency (ER) | payer MEDICAID ==
[2019-08-08 12:29] LABS: ACETAMINOPHEN 0 ug/mL (10-30)
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
[2019-08-08] MEDS ORDERED: Haloperidol Lactate 5 MG/ML SDV IM ONE (13:35)
[2019-08-08] MEDS ORDERED: LORazepam 2 MG/ML SDV IM ONE (13:35)
== END 2019-08-08 17:30 ==
LOC: JD.ED 10:59
DX: F43.10 Post-traumatic stress disorder, unspecified (principal); J45.909 Unspecified asthma, uncomplicated; F32.9 Major depressive disorder, single episode, unspecified; Z88.2 Allergy status to sulfonamides; Z79.899 Other long term (current) drug therapy
CPT/HCPCS: 36415; 80053; 80306; 80307; 81025; 84443; 85007; 85027; 93005; 96372; 99285; J1630; J2060

== ENCOUNTER 2019-08-21 05:52 | Emergency (ER) | payer MEDICAID ==
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
== END 2019-08-21 12:16 | disposition home or self-care (01) ==
LOC: JD.ED 05:52
DX: F32.9 Major depressive disorder, single episode, unspecified (principal); J45.909 Unspecified asthma, uncomplicated; Z79.899 Other long term (current) drug therapy; Z88.2 Allergy status to sulfonamides
CPT/HCPCS: 36415; 80053; 80306; 80307; 81001; 81025; 84439; 84443; 85025; 93005; 99284; 99285-25

== ENCOUNTER 2019-08-27 20:25 | Emergency (ER) | payer MEDICAID ==
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
[2019-08-27 23:55] LABS: ACETAMINOPHEN 0 ug/mL (10-30)
== END 2019-08-28 03:32 | disposition home or self-care (01) ==
LOC: JD.ED 20:25
DX: Z00.00 Encounter for general adult medical examination without abnormal findings (principal); F32.9 Major depressive disorder, single episode, unspecified; F43.10 Post-traumatic stress disorder, unspecified; Z88.2 Allergy status to sulfonamides; Z79.899 Other long term (current) drug therapy
CPT/HCPCS: 36415; 80053; 80306; 80307; 81003; 81025; 84484; 85007; 85027; 93005; 93010; 99282; 99285-25

== ENCOUNTER 2019-09-14 20:24 | Emergency (ER) | payer MEDICAID ==
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
[2019-09-14] MEDS ORDERED: Lactated Ringers 1,000 ML IV SCH (21:00)
[2019-09-14 21:17] LABS: ACETAMINOPHEN 0 ug/mL (10-30)
[2019-09-14] MEDS ORDERED: Lactated Ringers 1,000 ML IV STA (22:38)
== END 2019-09-15 02:10 ==
LOC: JD.ED 20:24
DX: T56.892A Toxic effect of other metals, intentional self-harm, initial encounter (principal); R44.0 Auditory hallucinations; R40.0 Somnolence; F32.9 Major depressive disorder, single episode, unspecified; Z79.899 Other long term (current) drug therapy; Z88.2 Allergy status to sulfonamides
CPT/HCPCS: 36415; 51701; 80053; 80178; 80306; 80307; 81025; 85025; 93005; 96360; 96361; 99285; J7120; 51702; 93010; 99284

== ENCOUNTER 2019-11-11 13:35 | Emergency (ER) | payer MEDICAID ==
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
[2019-11-11 14:53] LABS: ACETAMINOPHEN 0 ug/mL (10-30)
== END 2019-11-11 16:37 ==
LOC: JD.ED 13:35
DX: R45.851 Suicidal ideations (principal); J45.909 Unspecified asthma, uncomplicated; Z88.2 Allergy status to sulfonamides; Z79.899 Other long term (current) drug therapy
CPT/HCPCS: 36415; 80053; 80306; 80307; 81025; 84443; 85007; 85027; 99283; 99285

== ENCOUNTER 2019-11-16 16:04 | Inpatient (IN) | payer MEDICAID ==
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
[2019-11-16] MEDS ORDERED: LORazepam 2 MG/ML SDV IVPUSH ONE ×2 (16:38→16:39)
[2019-11-16] MEDS ORDERED: Lactated Ringers 1,000 ML IV SCH (16:45)
[2019-11-16 16:55] LABS: ACETAMINOPHEN 0 ug/mL (10-30)
[2019-11-16] MEDS ORDERED: Ondansetron 4 MG/2 ML SDV IV PRN (17:40)
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
[2019-11-16] MEDS ORDERED: Sodium Bicarbonate 8.4% 50 MEQ/50 ML Syringe IVPUSH ONE (21:25)
[2019-11-16] MEDS ORDERED: Sodium Bicarbonate 8.4% 50 MEQ/50 ML SDV ONE (21:30)
[2019-11-16] MEDS: LORazepam 2 MG/ML SDV IVPUSH SCH (21:40)
[2019-11-16] MEDS ORDERED: Sodium Bicarbonate 8.4% 50 MEQ/50 ML SDV IVPUSH ONE (21:45)
[2019-11-16] MEDS ORDERED: Lactated Ringers 1,000 ML IV ONE (22:32)
[2019-11-16] MEDS: Lactated Ringers 1,000 ML IV SCH (23:46)
[2019-11-17] MEDS ORDERED: LORazepam 2 MG/ML SDV IVPUSH ONE (02:58)
[2019-11-17] MEDS: Lactated Ringers 1,000 ML IV SCH ×4 (03:45→17:28)
[2019-11-17] MEDS: LORazepam 2 MG/ML SDV IVPUSH SCH (05:21)
[2019-11-17] MEDS: LORazepam 2 MG/ML SDV IVPUSH PRN ×2 (08:00→14:16)
[2019-11-17] MEDS ORDERED: Diazepam 5 MG Tab PO SCH (09:00)
[2019-11-17] MEDS ORDERED: Potassium Chloride 100 ML ONE (09:07)
[2019-11-17] MEDS: Potassium Chloride 10 MEQ in Premix Bag 1 BAG IV SCH ×5 (09:12→14:41)
[2019-11-17] MEDS: Diazepam 5 MG Tab PO SCH ×2 (09:21→10:56)
[2019-11-18] MEDS: LORazepam 2 MG/ML SDV IVPUSH PRN (07:42)
[2019-11-18] MEDS: LORazepam 1 MG Tab PO PRN ×2 (12:23→15:50)
[2019-11-18] MEDS: Diazepam 5 MG Tab PO SCH ×2 (12:23→21:20)
[2019-11-18] MEDS: Lithium Carbonate 300 MG Tab.ER PO SCH (18:13)
[2019-11-18] MEDS ORDERED: Haloperidol Lactate 5 MG/ML SDV IVPUSH PRN (18:46)
[2019-11-18] MEDS ORDERED: Haloperidol Lactate 5 MG/ML SDV ONE ×2 (18:48→19:15)
--- NOTE | 2019-11-18 18:52 | PCM.PN ---
- General Info Date of Service: 11/17/19 Subjective Update: Feeling OK No complaints - Exam General: Alert, Cooperative, No Acute Distress, Lethargic HEENT: Mucous Membr. Moist/[place] Neck: Supple, Trachea Midline, No JVD Lungs: Clear to Auscultation, Normal Respiratory Effort. No: Crackles, Rales, Rhonchi, Rub, Stridor, Wheezing Cardiovascular: Regular Rate, Regular Rhythm. No: Murmurs, Gallops, Rubs GI/Abdominal Exam: Normal Bowel Sounds, Soft, Non-Tender. No: Distended, Guarding, Rigid, Rebound Back Exam: Normal Inspection Extremities: Normal Inspection Peripheral Pulses: 2+: Radial (L), Radial (R) Psy/Mental Status: Labile Mood, Depressed, Agitated Sepsis Event Note - Evaluation Sepsis Screening Result: No Definite Risk - Focused Exam Vital Signs: Vital Signs Temp Pulse Resp BP Pulse Ox 11/18/19 12:00 98.4 F 108 H 18 119/78 100 11/18/19 08:00 98.1 F 101 H 19 126/86 100 - Problem List & Annotations (1) Suicide attempt SNOMED Code(s): 86416230 Code(s): T14.91XA - SUICIDE ATTEMPT, INITIAL ENCOUNTER Status: Acute Current Visit: No (2) Anticholinergic drug overdose SNOMED Code(s): 865464252 Code(s): T44.3X1A - POISONING BY OTH PARASYMPATH AND SPASMOLYTICS, ACC, INIT Status: Acute Current Visit: Yes (3) PTSD (post-traumatic stress disorder) SNOMED Code(s): 27953127 Code(s): F43.10 - POST-TRAUMATIC STRESS DISORDER, UNSPECIFIED Status: Acute Current Visit: No (4) Suicidal ideation SNOMED Code(s): 5100375 Code(s): R45.851 - SUICIDAL IDEATIONS Status: Acute Current Visit: No (5) Major depressive disorder SNOMED Code(s): 779743203 Code(s): F32.9 - MAJOR DEPRESSIVE DISORDER, SINGLE EPISODE, UNSPECIFIED Status: Acute Current Visit: Yes (6) Suicide attempt by drug overdose SNOMED Code(s): 07398719, 89496013 Code(s): T50.902A - POISONING BY UNSP DRUG/MEDS/BIOL SUBST, SELF-HARM, INIT Status: Acute Current Visit: Yes (7) H/O suicide attempt SNOMED Code(s): 788547704, 156856526 Code(s): Z91.5 - PERSONAL HISTORY OF SELF-HARM Status: Acute Current Visit: Yes (8) Prolonged QT syndrome SNOMED Code(s): 0884112 Code(s): I45.81 - LONG QT SYNDROME Status: Acute Current Visit: Yes (9) Tachycardia SNOMED Code(s): 6668469 Code(s): R00.0 - TACHYCARDIA, UNSPECIFIED Status: Acute Current Visit: Yes (10) Vitamin D deficiency SNOMED Code(s): 18139526 Code(s): E55.9 - VITAMIN D DEFICIENCY, UNSPECIFIED Status: Acute Current Visit: Yes - Problem List Review Problem List Initiated/Reviewed/Updated: Yes - Assessment Assessment:: 11/16/2019 Brought in to ED via EMS after Benadryl overdose Poison control contacted Home management with aripiprazole, amitriptyline, doxazosin, lithium and clonazepam PLAN - Physostigmine x 1 dose - LR @ 250ml/hr - NPO for now - UDS - Constant observer - Seizure precautions - Repeat EKG in AM - [place] level OVERNIGHT - HR went from 140 to 150s with widened QRS complex, patient asymptomatic - Poison control recommended 50mEq of sodium bicarbonate and repeat labs with repeat EKG 10 minutes after bicarb infusion - Started her on scheduled Ativan 0.5mg IV every 8 hours - Follow up with poison control --> recommending repeat labs and EKG in AM and increase IVF to 250ml/hr - QRS trend 596-->627-->633-->570-->491 11/17/2019 Spoke to poison control - Effects to be seen up to 24h after ingestion - K to be kept towards upper level of normal, closer to 5 VS trend - MAP: 92-102 - HR: 132-147 - Tmax: 99.3 - SatO2: >95% on room air Repeat labs - WBC up from 7.4 to 15.4 - Na up from 143 to 149 - K down from 4.1 to 3.9 - Cl up from 108 to 111 - Anion gap up from 19.9 to 21.9 - GFR up from 57 to >60 - PO4 up from 2.1 to 3.4 - Vitamin D 21.3 - Reticulocyte, B12 and folic acid in lower limit of normal - Plan Plan:: Suicide attempt with anticholinergic overdose Psychosis, audible hallucinations History of multiple prior suicide attempts with drug overdose Prolonged QT syndrome Sinus tachycardia Schizoaffective/Major depression disorder - Scheduled IV Ativan 0.5mg q8h - Repeat EKG STAT - Continue telemetry - Follow up with poison control - Continue LR @ 250ml/hr - Follow up on lithium level - KCl IV 50mEq - MgSO4 IV 1g - Consult psychiatry when appropriate - Constant observer Vitamin D deficiency - Start supplementation with 800u daily PROPHYLAXIS DVT- compression stockings GI- not indicated CODE STATUS: FULL CODE DISPOSITION: Patient will remain admitted to the ICU for observation under telemetry with poison control recommendations. Consult psychiatry when appropriate with placement to inpatient psychiatry upon discharge.
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
[2019-11-18] MEDS ORDERED: LORazepam 2 MG/ML SDV IVPUSH ONE (19:12)
[2019-11-18] MEDS ORDERED: Haloperidol Lactate 5 MG/ML SDV IVPUSH ONE (19:12)
[2019-11-18] MEDS ORDERED: LORazepam 2 MG/ML SDV ONE (19:15)
[2019-11-18] MEDS ORDERED: diphenhydrAMINE 50 MG/ML SDV IVPUSH ONE (19:21)
[2019-11-18] MEDS ORDERED: ARIPiprazole 10 MG Tab PO SCH (21:00)
[2019-11-18] MEDS: Doxazosin 4 MG Tab PO SCH (21:20)
[2019-11-19] MEDS: Haloperidol Lactate 5 MG/ML SDV IVPUSH SCH ×3 (01:15→12:20)
[2019-11-19] MEDS: LORazepam 2 MG/ML SDV IVPUSH SCH ×3 (01:57→12:20)
[2019-11-19] MEDS: Lithium Carbonate 300 MG Tab.ER PO SCH (07:21)
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
[2019-11-19] MEDS: Doxazosin 4 MG Tab PO SCH (08:28)
[2019-11-19] MEDS: Diazepam 5 MG Tab PO SCH (08:28)
[2019-11-19] MEDS ORDERED: Cyanocobalamin (Vitamin B12) 1,000 MCG Tab PO SCH (09:00)
[2019-11-19] MEDS ORDERED: Cholecalciferol (Vitamin D3) 25 MCG Tab PO SCH (09:00)
[2019-11-19] MEDS ORDERED: Folic Acid 1 MG Tab PO SCH (09:00)
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
== END 2019-11-19 12:32 | DRG 918 ==
LOC: JD.ED 16:04 → JD.ICU 17:40
PROVIDERS: ADMIT Internal Medicine; ATTEND Internal Medicine
DX: T45.0X2A Poisoning by antiallergic and antiemetic drugs, intentional self-harm, initial encounter (principal); F23 Brief psychotic disorder; T44.3X2A Poisoning by other parasympatholytics [anticholinergics and antimuscarinics] and spasmolytics, intentional self-harm, initial encounter; F43.10 Post-traumatic stress disorder, unspecified; F32.9 Major depressive disorder, single episode, unspecified; Z91.5 Personal history of self-harm; I45.81 Long QT syndrome; F29 Unspecified psychosis not due to a substance or known physiological condition; F25.9 Schizoaffective disorder, unspecified; E55.9 Vitamin D deficiency, unspecified; F41.9 Anxiety disorder, unspecified; Z79.899 Other long term (current) drug therapy; R00.0 Tachycardia, unspecified; Z20.828 Contact with and (suspected) exposure to other viral communicable diseases
CPT/HCPCS: 36415; 36600; 51702; 80048; 80053; 80178; 80306; 80307; 82306; 82607; 82746; 82803; 82962; 83540; 83605; 83735; 84100; 84466; 85025; 85045; 93005; 93010; 96361; 96374; 99283; 99285-25; A9270-GY; J1200; J1630; J2060; J2405; J3360; J3475; J3480; J7120; U0002